=== PATIENT | female | born 1960 | race Asian ===

== ENCOUNTER → 2020-04-20 | Outpatient (CLI) | payer BC ==
[~2020-04-20] MED LIST: ALPR0.5T7 PO; BUTA1CAP30 PO; LEVO88TA2 PO; PROM25SU34 RC
== END | disposition home or self-care (01) ==
LOC: CVU 13:19
PROVIDERS: ATTEND Physician Assistant Medical
DX: I08.8 Other rheumatic multiple valve diseases (principal); E78.2 Mixed hyperlipidemia
CPT/HCPCS: 93306

== ENCOUNTER → 2020-04-21 | Outpatient (CLI) | payer BC | END | disposition home or self-care (01) | LOC: CFH 12:10 | PROVIDERS: ATTEND Physician Assistant Medical | DX: Z13.6 Encounter for screening for cardiovascular disorders (principal); I34.0 Nonrheumatic mitral (valve) insufficiency; E78.2 Mixed hyperlipidemia | CPT/HCPCS: 75571 ==